=== PATIENT | male | born 1995 | race Caucasian/White ===

== ENCOUNTER 2016-06-07 20:06 | Emergency (ER) | payer OTHER ==
[2016-06-07 20:41] VITALS: BP 127/77; PULSE 68; TEMP 97.7; BMI 27.6
[2016-06-07] MEDS ORDERED: diphenhydrAMINE HCL 25 MG CAPSULE (FP) PO ONE ×2 (22:02→22:04)
[2016-06-07] MEDS ORDERED: RANITIDINE HCL 150 MG TABLET (FP) PO ONE (22:02)
--- NOTE | 2016-06-07 22:03 | PDOC ---
History of Present Illness - General Chief Complaint: Rash Stated Complaint: RASH Time Seen by Provider: 06/07/16 21:09 History Source: Patient Exam Limitations: No Limitations - History of Present Illness Initial Comments: 06/07/16 22:05 Chief complaint: Rash on arms chest or abdomen and neck soon after drinking a shake the patient had before History of present illness: Patient is a 20 year old male here today complaining of a sudden onset of a rash that began on his left medial wrist and spread up his bilateral medial arms been started on his neck and chest and abdomen. Patient reports that he drank a shake that he has drunk before and rash started shortly after that. Patient denies any difficulty breathing or swallowing. Patient reports having similar reaction 07/15/2014 after taking amoxicillin. Patient did not follow-up with an group billing coordinator. Patient was treated here and released. Patient denies any new medications, laundry detergent soaps or creams or any new foods. Patient took a Claritin and itchiness has decreased this evening. 06/07/16 22:06 06/07/16 23:08 Timing/Duration: changing over time Severity: moderate Associated Symptoms: reports: rash (pruritic at first early today ) Past History - Past Medical History Allergies/Adverse Reactions: Allergies Allergy/AdvReac Type Severity Reaction Status Date / Time No Known Allergies Allergy Verified 06/07/16 20:38 Home Medications: Ambulatory Orders Epinephrine (Epi-Pen 0.3MG) [Epipen 0.3MG -] 0.3 mg IM ASDIR PRN #2 pens MDD 2 06/07/16 Loratadine [Claritin -] 10 mg PO ONCE 06/07/16 Prednisone [Deltasone] 20 mg PO BID #8 tablet 06/07/16 Ranitidine [Zantac -] 150 mg PO BID #8 tablet 06/07/16 - Immunization History Immunization Up to Date: Yes - Psycho/Social/Smoking Cessation Hx Anxiety: No Suicidal Ideation: No Smoking History: Current every day smoker Have you smoked in the past 12 months: Yes Number of Cigarettes Smoked Daily: 5 Information on smoking cessation initiated: No 'Breaking Loose' booklet given: 02/17/16 Hx Alcohol Use: Yes (SOCIAL) Drug/Substance Use Hx: No Substance Use Type: Marijuana Review of Systems - Review of Systems Able to Perform ROS?: Yes Constitutional: No: Symptoms Reported HEENTM: No: Symptoms Reported Respiratory: No: Symptoms reported Cardiac (ROS): No: Symptoms Reported ABD/GI: No: Symptoms Reported : No: Symptoms Reported Musculoskeletal: No: Symptoms Reported Integumentary: Yes: Pruritus (prior to coming here today decreased after taking claritin ), Rash (then on left medial wrist spread up medial arm and spread to his right medial arm chest neck and abdomen) Neurological: No: Symptoms reported *Physical Exam - Vital Signs Last Vital Signs Temp Pulse Resp BP Pulse Ox 97.7 F 68 18 127/77 98 06/07/16 20:39 06/07/16 20:39 06/07/16 20:39 06/07/16 20:39 06/07/16 20:39 - Physical Exam General Appearance: Yes: Appropriately Dressed HEENT: positive: Normal ENT Inspection Neck: negative: Lymphadenopathy (R), Lymphadenopathy (L) Respiratory/Chest: positive: Lungs Clear. negative: Chest Tender, Normal Breath Sounds, Respiratory Distress Cardiovascular: positive: Regular Rhythm, Regular Rate, S1, S2 Integumentary: positive: Rash (b/l medial forearms and upper arm, neck, chest and abdomen non raised ) Neurologic: positive: Alert, Normal Response, Responsive. negative: Respond to painful stimul, Sensory Deficit Medical Decision Making - Medical Decision Making 06/07/16 22:07 Patient is a 20 year old male here today complaining of a sudden onset of a rash that began on his left medial wrist and spread up his bilateral medial arms been started on his neck and chest and abdomen. Patient reports that he drank a shake that he has drunk before and rash started shortly after that. Patient denies any difficulty breathing or swallowing. Patient reports having similar reaction 07/15/2014 after taking amoxicillin. Patient did not follow-up with an group billing coordinator. Patient was treated here and released. Patient denies any new medications, laundry detergent soaps or creams or any new foods. Patient took a Claritin and itchiness has decreased this evening. 06/07/16 22:09 Allergic urticaria Plan: Prednisone 60 mg by mouth now then 20 mg twice a day 4 days Benadryl 25 mg by mouth now then every 4-6 hours as needed for itchiness Zantac 150 milligrams by mouth now then twice a day for following 4 days You must follow up with an group billing coordinator at Dr. Manriquez ear nose and throat 06/07/16 23:08 Rash has decreased no itchiness or difficulty breathing or swallowing epipen 0.3mg sq into lateral mid thigh if severe difficulty breathing or swallowing *DC/Admit/Observation/Transfer Diagnosis at time of Disposition: Allergic urticaria - Discharge Dispostion Disposition: HOME Condition at time of disposition: Stable - Referrals Referrals: Graham Clayton MD [Staff Physician] - - Patient Instructions Additional Instructions: Benadryl 25 mg every 4-6 hours as needed for itchiness Return to emergency room if any difficulty breathing or swallowing Follow up with Dr. Clayton's office for allergy testing as soon as possible Patient voiced understanding of discharge instructions and all questions were answered
[2016-06-07] MEDS ORDERED: predniSONE 20 MG TABLET (UD) PO ONE (22:04)
[2016-06-07] MEDS ORDERED: RANITIDINE HCL 150 MG TABLET (FP) ONE (22:04)
[2016-06-07] MEDS ORDERED: predniSONE 20 MG TABLET (UD) ONE (22:07)
== END 2016-06-07 23:16 | disposition home or self-care (01) ==
LOC: JERFT 20:06
DX: T78.1XXA Other adverse food reactions, not elsewhere classified, initial encounter (principal); L50.0 Allergic urticaria; X58.XXXA Exposure to other specified factors, initial encounter
CPT/HCPCS: 99281-25